=== PATIENT | male | born 1995 | race Caucasian/White ===

== ENCOUNTER 2020-02-06 15:11 | Emergency (ER) | payer OTHER ==
[~2020-02-06] VITALS: Ht 177.8 cm; Wt 89.6 kg
[2020-02-06 15:24] VITALS: BP 134/88
--- NOTE | 2020-02-06 15:50 | NUR ---
Pt was on skateboard and slipped injurying right knee. Pt now has moderate swelling and redness. Pt has small abrasion to right knee. Pt denies any loss of sensation but pt is able to tolerate wiehgt on it but he does feel a pop that made give out on his knee. Pt reports no other issues. Pt to MRI.
[2020-02-06] MEDS ORDERED: NEOSPORIN OINT. PKT 1 PACKET ONE (16:02)
--- NOTE | 2020-02-06 17:10 | NUR ---
Abrasion on right knee cleaned and dressed. Awaiting MRI results.
--- NOTE | 2020-02-06 18:06 | NUR ---
Patient/Caregiver given discharge instructions and they have confirmed that they understand the instructions. Patient ambulatory with steady gait.
--- NOTE | 2020-02-06 18:06 | NUR ---
kNEE IMOBILIZER APPLIED AND PT WAS TAUGHT TO USE CRUTCHES AT URGENT CARE.
== END 2020-02-06 18:09 | disposition home or self-care (01) ==
LOC: ED 18:00
DX: M25.361 Other instability, right knee (principal)
CPT/HCPCS: 99284